=== PATIENT | male | born 1960 | race Caucasian/White ===

== ENCOUNTER 2017-02-23 21:46 | Emergency (ER) | payer BC ==
[2017-02-24 02:18] VITALS: BP 134/84
--- NOTE | 2017-02-27 08:25 | ER ---
Date of Service: 02/23/2017 SUBJECTIVE: Gagandeep presents to the emergency room with complaints of pain in his low back and weakness in his left lower extremity. The patient has a history of degenerative disk disease and underwent a spinal L4, L5, S1 fusion at [facility] in [place]. He states that he recently started physical therapy and has been experiencing some weakness and foot drop in his left lower extremity. He states that he is not experiencing any saddle anesthesia or urinary or fecal incontinence. The patient states that the discomfort has been present for several months and has not completely improved since the surgery. He states that he has not been taking any medication for the discomfort. MEDICATIONS: 1. Trazodone. 2. Vistaril. 3. Atorvastatin. 4. Protonix. 5. Multivitamin. 6. Cymbalta. 7. Lisinopril. 8. Enteric-coated aspirin. REVIEW OF SYSTEMS: Denies any saddle anesthesia or numbness or tingling in his lower extremities. No fecal or urinary incontinence or retention. PHYSICAL EXAMINATION: General: This is a 56-year-old male patient, who is in no acute distress. Vital Signs: Please see nurse's notes. Skin: Warm, pink, and dry. HEENT: Mouth, oral mucosa is moist. Musculoskeletal: He does have some muscle spasm to the right paraspinal muscles in the area of L4, L5, S1. No obvious step-offs or deformity noted. His straight leg raise is positive on the left. He has no significant foot drop noted. Neurovascular, circulation, sensation, and motor function all within normal limits in distal portion of his lower extremities. ASSESSMENT: Acute on chronic low back pain with history of left foot drop. PLAN: The patient was reassured. He was offered ibuprofen here in the emergency room. I did offer him a course of Flexeril to help with muscle spasm, but he refused. We will have him follow up with his primary care provider and his neurosurgeon. All questions were answered. MWK: 02/24/2017 00:31:55 MODL: 02/24/2017 01:31:19 /[id number]
== END 2017-02-23 22:26 | disposition home or self-care (01) ==
LOC: VM.ED 21:46
DX: M54.5 Low back pain (principal); G89.29 Other chronic pain
CPT/HCPCS: 99283

== ENCOUNTER 2019-09-02 11:21 | Emergency (ER) | payer BC ==
[2019-09-02] MEDS ORDERED: Nitroglycerin 0.4 MG Tab.SL SL PRN (11:37)
--- NOTE | 2019-09-02 11:46 | EDM.PDOC ---
ED HPI GENERAL MEDICAL PROBLEM - General Chief Complaint: Chest Pain Stated Complaint: CHEST PAINS Time Seen by Provider: 09/02/19 11:25 Source of Information: Reports: Patient History Limitations: Reports: No Limitations - History of Present Illness INITIAL COMMENTS - FREE TEXT/NARRATIVE: 58-year-old white male except here to ER with having left sided chest pain states the pressure about a 7 out of 10 with a little bit or radiation to the left arm and worse with deep breath started approximately 10 minutes ago while sitting at home. Patient states he just completed a treadmill stress test here in the hospital earlier today with no issues. States he has been seen in the ER for this type pain before on the right side approximately couple months ago had a normal workup. Patient denies any shortness of breath nausea vomiting diaphoresis states he is doing fine until 10 minutes ago he has no family cardiac history. Patient states that he was told that he had an old heart attack by his primary care provider but has never been worked up for. He has never seen cardiology for this. Duration: Minutes: Location: Reports: Chest Severity: Moderate Improves with: Reports: None Worsens with: Reports: Other (Deep breath) Mid-Sternal Chest Pain Score (Numeric/FACES): 5 Right Chest Pain Score (Numeric/FACES): 5 - Related Data Allergies Allergy/AdvReac Type Severity Reaction Status Date / Time nicotine Allergy Rash Verified 09/02/19 12:45 diallo patches Allergy Rash Uncoded 09/02/19 12:33 Home Meds: Home Meds Aspirin [Adult Low Dose Aspirin EC] 81 mg PO DAILY 08/16/16 [History] Multivitamin with Minerals [Multiple Vitamin] 1 tab PO DAILY 08/16/16 [History] hydrOXYzine pamoate [Vistaril] 50 mg PO DAILY 08/16/16 [History] traZODone 100 mg PO BEDTIME 08/16/16 [History] DULoxetine [Cymbalta] 90 mg PO DAILY 08/20/19 [History] Lisinopril/Hydrochlorothiazide [Zestoretic 10-12.5 mg Tablet] 1 each PO DAILY [History] atorvaSTATin Calcium [Lipitor] 20 mg PO BEDTIME 08/20/19 [History] hydrOXYzine pamoate [Hydroxyzine Pamoate] 100 mg PO BEDTIME 08/20/19 [History] Past Medical History HEENT History: Reports: Other (See Below) Other HEENT History: Amaurosis fugax of right eye Cardiovascular History: Reports: Angina, High Cholesterol Other Cardiovascular History: Negative cardiolyte stress test Respiratory History: Reports: None Gastrointestinal History: Reports: None, GERD Genitourinary History: Reports: None Musculoskeletal History: Reports: Other (See Below) Other Musculoskeletal History: Carpal tunnel syndrome R Neurological History: Reports: None Psychiatric History: Reports: Other (See Below) Other Psychiatric History: ETOH dependence Endocrine/Metabolic History: Reports: None Hematologic History: Reports: None Immunologic History: Reports: None Oncologic (Cancer) History: Reports: None Dermatologic History: Reports: None - Past Surgical History Head Surgeries/Procedures: Reports: None HEENT Surgical History: Reports: Oral Surgery Cardiovascular Surgical History: Reports: Carotid Endarterectomy GI Surgical History: Reports: Colonoscopy Musculoskeletal Surgical History: Reports: Carpal Tunnel Oncologic Surgical History: Reports: None Social & Family History - Caffeine Use Caffeine Use: Reports: Coffee Caffeine Use Comment: cup aday. ED ROS GENERAL - Review of Systems Review Of Systems: See Below Constitutional: Reports: No Symptoms HEENT: Reports: No Symptoms Respiratory: Denies: Shortness of Breath, Wheezing, Pleuritic Chest Pain, Cough , Sputum, Hemoptysis Cardiovascular: Reports: Chest Pain. Denies: Blood Pressure Problem, Claudication, Dyspnea on Exertion, Edema, Lightheadedness, Orthopnea, Palpitations, PND, Syncope Endocrine: Reports: No Symptoms GI/Abdominal: Reports: No Symptoms : Reports: No Symptoms Musculoskeletal: Reports: No Symptoms Skin: Reports: No Symptoms Neurological: Reports: No Symptoms Psychiatric: Reports: No Symptoms Hematologic/Lymphatic: Reports: No Symptoms Immunologic: Reports: No Symptoms ED EXAM, GENERAL - Physical Exam Exam: See Below Exam Limited By: No Limitations General Appearance: Alert, WD/WN, No Apparent Distress Throat/Mouth: Normal Inspection, Normal Lips, Normal Teeth, Normal Oropharynx, Normal Voice Neck: Normal Inspection, Supple, Non-Tender, Full Range of Motion Respiratory/Chest: No Respiratory Distress, Lungs Clear, Normal Breath Sounds, No Accessory Muscle Use, Other (Positive tenderness palpation over the left lateral chest wall patient states reproduces somewhat of the pain). No: Chest Non-Tender Cardiovascular: Normal Peripheral Pulses, Regular Rate, Rhythm, No Edema, No Gallop, No JVD, No Murmur, No Rub GI/Abdominal: Normal Bowel Sounds, Soft, Non-Tender, No Organomegaly, No Distention Back Exam: Normal Inspection, Full Range of Motion Extremities: Normal Inspection, Normal Range of Motion, Non-Tender, No Pedal Edema Neurological: Alert, Oriented, CN II-XII Intact, Normal Cognition, Normal Gait, No Motor/Sensory Deficits Skin Exam: Warm, Dry, Intact, Normal Color. No: Diaphoretic Course - Vital Signs Text/Narrative:: EKG was normal sinus rhythm no acute ST elevation depression noted no noted old Q waves CBC BMP troponin and CK EKG chest x-ray nitroglycerin Patient checked after nitroglycerin and pain is 5 out of 10 now feels a little better also spoke with respiratory therapy about stress test this morning states care provider did not see any elevation or depression during the stress test but states she did get very diaphoretic afterwards and had to be helped to the car secondary lightheadedness Lab work within normal limits chest x-ray no acute findings EKG compared to baseline from this morning and stress test no acute changes Spoke with primary care provider Dr. French Godoy states patient has been admitted for chest pain rule out about 2 weeks ago which was within normal limits he has had a new stress test 2016 which is normal had a normal stress test today. At this time obtain a 3 hour troponin #2 and if normal discharge to the house he will set up the patient outpatient to be seen by cardiology. Second troponin were negative patient has no chest pain we'll discharge home and have him follow primary care provider Last Recorded V/S: Last Vital Signs Temp 36.6 C 09/02/19 11:21 Pulse 80 09/02/19 13:00 Resp 16 09/02/19 13:00 BP 101/59 L 09/02/19 13:00 Pulse Ox 95 09/02/19 13:00 - Orders/Labs/Meds Orders: Active Orders 24 hr Category Date Time Status EKG 12 Lead [EKG Documentation Completion] [RC] STAT Care 09/02/19 11:21 Active Nitroglycerin [Nitrostat] Med 09/02/19 11:37 Active 0.4 mg SL Q5M PRN Medication Orders Nitroglycerin (Nitrostat) 0.4 mg SL Q5M PRN PRN Reason: Chest Pain Last Admin: 09/02/19 11:39 Dose: 0.4 mg Labs: Laboratory Tests 09/02/19 09/02/19 09/02/19 Range/Units 11:52 11:52 14:44 WBC 8.9 (4.0-10.0) x10^3/uL RBC 4.96 (4.5-6.0) x10^6/uL Hgb 15.0 (14.0-18.0) g/dL Hct 43.6 (40.0-52.0) % MCV 87.9 (78.0-93.0) fL MCH 30.2 (26.0-32.0) pg MCHC 34.4 (32.0-36.0) g/dL RDW Coeff of Rosaura 13.5 (10.0-15.0) % Plt Count 306 (130-400) x10^3/uL Neut % (Auto) 54.0 (50.0-80.0) % Lymph % (Auto) 31.8 (25.0-50.0) % [place] % (Auto) 10.3 (2.0-11.0) % Eos % (Auto) 3.7 (0.0-4.0) % Baso % (Auto) 0.2 (0.2-1.2) % Sodium 140 (136-145) mmol/L Potassium 4.4 (3.5-5.1) mmol/L Chloride 101 (98-107) mmol/L Carbon Dioxide 28 (21-32) mmol/L Anion Gap 15.4 (10-20) mmol/L BUN 26 H (7-18) mg/dL Creatinine 1.3 (0.70-1.30) mg/dL Est Cr Clr Drug Dosing TNP Estimated GFR (MDRD) 57 Glucose 99 (74-106) mg/dL Calcium 8.9 (8.5-10.1) mg/dL Creatine Kinase 302 (39-308) U/L Troponin I < 0.017 < 0.017 (<=0.056) ng/mL Meds: Medications Generic Name Dose Route Start Last Admin Trade Name Freq PRN Reason Stop Dose Admin Nitroglycerin 0.4 mg 09/02/19 11:37 09/02/19 11:39 Nitrostat SL 0.4 mg Q5M PRN Administration Chest Pain Departure - Departure Time of Disposition: 15:15 Disposition: Home, Self-Care 01 Condition: Good Clinical Impression: Chest pain Qualifiers: Chest pain type: unspecified Qualified Code(s): R07.9 - Chest pain, unspecified Instructions: Nonspecific Chest Pain, [id number] Referrals: PCP,Unknown [Ordering Only Provider] - Forms: ED Department Discharge Additional Instructions: Return to the emergency room if anything gets worse or changes Follow-up with your primary care provider in the next 24-48 hours - Problem List & Annotations (1) Chest pain SNOMED Code(s): 94053561 Code(s): R07.9 - CHEST PAIN, UNSPECIFIED Status: Acute Current Visit: Yes Annotation/Comment:: Admit to Observation for telemetry and serial labs Qualifiers: Chest pain type: unspecified Qualified Code(s): R07.9 - Chest pain, unspecified - My Orders Last 24 Hours: My Active Orders 09/02/19 11:21 EKG 12 Lead [EKG Documentation Completion] [RC] STAT 09/02/19 11:37 Nitroglycerin [Nitrostat] 0.4 mg SL Q5M PRN - Assessment/Plan Last 24 Hours: My Active Orders 09/02/19 11:21 EKG 12 Lead [EKG Documentation Completion] [RC] STAT 09/02/19 11:37 Nitroglycerin [Nitrostat] 0.4 mg SL Q5M PRN
--- NOTE | 2019-09-02 12:13 | CR ---
[id number] RAD/RAD Chest PA or AP 1V EXAM: FRONTAL CHEST INDICATION: Chest pain. COMPARISON: August 20, 2019. DISCUSSION: The heart and lungs are normal in appearance. Probable loose bodies in the subcoracoid recess of the right shoulder. IMPRESSION: 1. Negative exam. Bishop Stallings MD 09/02/19 [id number] Thank you for allowing us to participate in the care of your patient.
[2019-09-02 12:22] LABS: ANION GAP 15.4 mmol/L (10-20); CHLORIDE,CL 101 mmol/L (98-107); SODIUM,NA 140 mmol/L (136-145)
[2019-09-02 17:45] VITALS: BP 107/68; PULSE 69
== END 2019-09-02 15:30 | disposition home or self-care (01) ==
LOC: VM.ED 11:21
DX: R07.89 Other chest pain (principal); E78.00 Pure hypercholesterolemia, unspecified; Z88.5 Allergy status to narcotic agent; Z91.048 Other nonmedicinal substance allergy status; Z79.82 Long term (current) use of aspirin; Z79.899 Other long term (current) drug therapy
CPT/HCPCS: 36415; 71045; 80048; 82550; 84484; 85025; 93005; 99285-25

== ENCOUNTER 2020-04-02 10:30 | Emergency (ER) | payer BC ==
--- NOTE | 2020-04-02 10:56 | EDM.PDOC ---
ED HPI GENERAL MEDICAL PROBLEM - General Chief Complaint: Upper Extremity Injury/Pain Stated Complaint: HAND SWOLLEN FROM BITE Time Seen by Provider: 04/02/20 10:45 Source of Information: Reports: Patient History Limitations: Reports: No Limitations - History of Present Illness INITIAL COMMENTS - FREE TEXT/NARRATIVE: Patient comes into the emergency department with complaints of right swollen hand. Patient states that he was stung in the right hand yesterday by a horse fly. He states that throughout the course of the day and into this morning he has noticed small amount of increase in swelling of that right hand. Patient denies taking any antihistamine or icing or elevating that extremity. Patient states that he was unsure what to do and does normally have localized reactions to bug bites. Patient denies having any shortness of breath, chest pain, increasing swelling in the arm, Pain, fever, GI concerns or Peripheral edema.He denies any CMS or ROM concerns as well. Onset: Sudden, Gradual Quality: Reports: Other Severity: Mild Improves with: Reports: None Worsens with: Reports: None Context: Reports: Other Associated Symptoms: Reports: No Other Symptoms - Related Data Allergies Allergy/AdvReac Type Severity Reaction Status Date / Time nicotine Allergy Rash Verified 09/02/19 12:45 diallo patches Allergy Rash Uncoded 09/02/19 12:33 Home Meds: Home Meds Aspirin [Adult Low Dose Aspirin EC] 81 mg PO DAILY 08/16/16 [History] Multivitamin with Minerals [Multiple Vitamin] 1 tab PO DAILY 08/16/16 [History] hydrOXYzine pamoate [Vistaril] 50 mg PO DAILY 08/16/16 [History] traZODone 100 mg PO BEDTIME 08/16/16 [History] DULoxetine [Cymbalta] 90 mg PO DAILY 08/20/19 [History] Lisinopril/Hydrochlorothiazide [Zestoretic 10-12.5 mg Tablet] 1 each PO DAILY 08/20/19 [History] atorvaSTATin Calcium [Lipitor] 20 mg PO BEDTIME 08/20/19 [History] hydrOXYzine pamoate [Hydroxyzine Pamoate] 100 mg PO BEDTIME 08/20/19 [History] Past Medical History HEENT History: Reports: Other (See Below) Other HEENT History: Amaurosis fugax of right eye Cardiovascular History: Reports: Angina, High Cholesterol Other Cardiovascular History: Negative cardiolyte stress test Respiratory History: Reports: None Gastrointestinal History: Reports: None, GERD Genitourinary History: Reports: None Musculoskeletal History: Reports: Other (See Below) Other Musculoskeletal History: Carpal tunnel syndrome R Neurological History: Reports: None Psychiatric History: Reports: Other (See Below) Other Psychiatric History: ETOH dependence Endocrine/Metabolic History: Reports: None Hematologic History: Reports: None Immunologic History: Reports: None Oncologic (Cancer) History: Reports: None Dermatologic History: Reports: None - Past Surgical History Head Surgeries/Procedures: Reports: None HEENT Surgical History: Reports: Oral Surgery Cardiovascular Surgical History: Reports: Carotid Endarterectomy GI Surgical History: Reports: Colonoscopy Musculoskeletal Surgical History: Reports: Carpal Tunnel Oncologic Surgical History: Reports: None Social & Family History - Caffeine Use Caffeine Use: Reports: Coffee Caffeine Use Comment: cup dennys. Review of Systems - Review of Systems Review Of Systems: Comprehensive ROS is negative, except as noted in HPI. Constitutional: Reports: No Symptoms Eyes: Reports: No Symptoms Ears: Reports: No Symptoms Nose: Reports: No Symptoms Mouth/Throat: Reports: No Symptoms Respiratory: Reports: No Symptoms Cardiovascular: Reports: No Symptoms GI/Abdominal: Reports: No Symptoms Genitourinary: Reports: No Symptoms Musculoskeletal: Reports: No Symptoms Neurological: Reports: No Symptoms Psychiatric: Reports: No Symptoms ED EXAM, GENERAL - Physical Exam Exam: See Below Exam Limited By: No Limitations General Appearance: Alert, WD/WN, No Apparent Distress Throat/Mouth: No Airway Compromise Head: Atraumatic, Normocephalic Neck: Normal Inspection, Supple, Non-Tender, Full Range of Motion Respiratory/Chest: No Respiratory Distress, Normal Breath Sounds, Chest Non- Tender Cardiovascular: Normal Peripheral Pulses, Regular Rate, Rhythm, No Edema Peripheral Pulses: 4+: Radial (L), Radial (R) Extremities: Normal Range of Motion, Non-Tender, No Pedal Edema, Normal Capillary Refill, Other (right hand- mod swelling of anterior hand. no redness or warmth noted. CMS intact, ROM intact) Neurological: Alert, Oriented, Normal Gait Skin Exam: Warm, Dry, Intact Departure - Departure Time of Disposition: 11:00 Disposition: Home, Self-Care 01 Condition: Good Clinical Impression: Bug bite of face without infection - Discharge Information *PRESCRIPTION DRUG MONITORING PROGRAM REVIEWED*: Not Applicable *COPY OF PRESCRIPTION DRUG MONITORING REPORT IN PATIENT JAQUELIN: Not Applicable Instructions: Bee, Wasp, or Hornet Sting, Adult, Diphenhydramine capsules or tablets, Cetirizine tablets Forms: ED Department Discharge Additional Instructions: 1. rest 2. increase your water intake 3. Continue all at home medications 4. Activity and diet as tolerated 5. Can take over the counter Tylenol or ibuprofen for any pain or discomfort 6. Follow up with PCP if symptoms continue, return, or progress 7. Call with any questions or concerns 8. Take 25 mg-50 mg of Benadryl every 4 hours for the next 24 to 48 hours to help with swelling and discomfort 9. Use ice to the affected extremity 20 minutes at a time 4-5 times a day 10. If swelling is occurring in the affected extremity elevate above the level of the heart to reduce any swelling and discomfort 11. It is also recommended that you take a daily antihistamine for example Zyrtec [id number]-hrquzmx-per bottle instructions-on a daily basis for the next 7 to 10 days - Assessment/Plan Assessment:: 1. bug bite 2. swelling of right hand 3. localization reaction to bug bite Plan: 1. Ice Applied to the affected area 2. Medication offered to the patient- patient drove. Will moss picker Benadryl from pharmacy at discharge 3. Did also recommend elevation of the extremity 4. Recommended pt to take Zyrtec daily for 7-10 days 5. Education regarding activity, [id number] medications, and follow-up care provided. 6. All questions and concerns addressed with the patient prior to discharge 7. Patient is encouraged to return back to the emergency department immediately if he has attempted to use Benadryl, ice, elevation and a daily Zyrtec with no relief. He is also encouraged to return if he notices increased swelling, warmth, or drainage in the affected extremity.
[2020-04-02 11:23] VITALS: BP 118/77; PULSE 82
== END 2020-04-02 11:01 | disposition home or self-care (01) ==
LOC: VM.ED 10:30
DX: S00.86XA Insect bite (nonvenomous) of other part of head, initial encounter (principal); E78.00 Pure hypercholesterolemia, unspecified; Z88.4 Allergy status to anesthetic agent; Z79.82 Long term (current) use of aspirin; Z79.899 Other long term (current) drug therapy; W57.XXXA Bitten or stung by nonvenomous insect and other nonvenomous arthropods, initial encounter
CPT/HCPCS: 99282; 99283-GF